=== PATIENT | female | born 2000 | race Caucasian/White ===

== ENCOUNTER 2022-04-23 12:49 | Outpatient (CLI) | payer BC, SELFPAY ==
[2022-04-25 12:05] LABS: Chlamydia DNA Amplified* Not Detected (No Detected); GC DNA Amplified* Not Detected (No Detected)
== END 2022-04-23 12:50 | disposition home or self-care (01) ==
PROVIDERS: PCP Physician Assistant Medical; Visit Provider Physician Assistant Medical
DX: Z11.3 Encounter for screening for infections with a predominantly sexual mode of transmission (principal)
CPT/HCPCS: 87491; 87591